=== PATIENT | male | born 1975 | race Caucasian/White ===

== ENCOUNTER 2019-02-01 15:55 | Emergency (ER) | payer OTHER, MEDICAID ==
[~2019-02-01] VITALS: Ht 198.1 cm; Wt 113.4 kg
[~2019-02-01 15:55] MED LIST: NORCO 5-325 TA1 EACH PO; PRILOSEC40 MG PO; TRAMADOL 50 MG50 MG; TRAMADOL 50 MG50 MG PO; ULTRAM 50MG TAB50 MG PO; VENTOLIN17 GM INH
[2019-02-01] MEDS ORDERED: XANAX 0.5 MG0.5 M1 PO (16:07)
[2019-02-01] MEDS ORDERED: MOBIC7.5 MG PO (16:53)
[2019-02-01 17:10] VITALS: BP 145/86
== END 2019-02-01 17:12 | disposition home or self-care (01) ==
LOC: M.ERS 15:55
DX: S20.211A Contusion of right front wall of thorax, initial encounter (principal); F17.200 Nicotine dependence, unspecified, uncomplicated; X58.XXXA Exposure to other specified factors, initial encounter; Y93.89 Activity, other specified; Y92.89 Other specified places as the place of occurrence of the external cause; Y99.8 Other external cause status